=== PATIENT | female | born 1985 | race Caucasian/White ===

== ENCOUNTER 2024-05-22 21:15 | Emergency (ER) | payer SELFPAY ==
[2024-05-22] VITALS (17 sets, daily range): BP systolic 107–137; BP diastolic 83–96; PULSE 65–93; RESP 16–33; TEMP 37.2; O2SAT 95–99
[2024-05-22] MEDS: Ondansetron O.D.T. 4 MG TABEF PO (21:55)
--- NOTE | 2024-05-22 22:00 | RT.EKG_ITS ---
APPROVED REPORT Exam: Resting ECG Reason for Exam: seizure Patient Location: E HR:81 bpm ECG Measurements Heart Rate 81 AXIS LA 173 P 79 QRSd 80 QRS 56 QT 365 T 35 QTc 423 Conclusion Sinus rhythm...normal P axis, V-rate 60- [address] segment or T wave abnormalities to suggest occlusive SD
[2024-05-22] MEDS: LORazepam 2 MG/ML VIAL IVP (22:05)
[2024-05-22 22:15] LABS: BE (Venous) 5 mmol/L (-2-3); HCO3 (Venous) 27 mmol/L (23-28); O2 Sat (Venous) 93 %; TCO2 (Venous) 24 mmol/L (24-29); pCO2 (Venous) 32 mmHg (41-51); pH (Venous) 7.53 (7.31-7.41); pO2 (Venous) 57 mmHg
[2024-05-22 22:19] LABS: Abs Immature Grans 0.07 10^3/uL (0.0-0.06); Absolute Lymphocyte Count 1.99 10^3/uL (1.2-3.4); Absolute Monocyte Count 0.88 10^3/uL (0.1-0.8); Absolute Neutrophil Count 13.19 10^3/uL (1.2-6.7); Basophils % 0.4 %; Eosinophils % 0.1 %; HCT 35.6 % (36.0-46.0); HGB 11.9 g/dL (11.2-15.7); Immature Grans % 0.4 %; Lactate 2.1 mmol/L (0.6-1.4); Lymphocytes % 12.3 %; MCH 29.2 pg (27.0-33.0); MCHC 33.4 % (32.0-36.0); MCV 87 fL (80-95); MPV 10.8 fL (8.0-11.0); Monocytes % 5.4 %; Neutrophils % 81.4 %; Platelet Count 341 10^3/uL (130-400); RBC 4.08 10^6/uL (3.93-5.22); RDW-SD 44.6 fL; WBC 16.21 10^3/uL (4.4-10.8)
[2024-05-22 22:20] LABS: Absolute Basophil Count 0.06 10^3/uL (0.0-0.2); Absolute Eosinophil Count 0.02 10^3/uL (0.0-0.7)
[2024-05-22] MEDS: levETIRAcetam 2,000 MG in Normal Saline 100 ML 200 MG IVPB (22:27)
[2024-05-22 22:48] LABS: ALT 17 U/L (14-59); AST 22 U/L (15-37); Albumin 3.6 g/dL (3.4-5.0); Alkaline Phosphatase 97 U/L (46-116); Anion Gap 11.8 mmol/L (3-11); Bilirubin, Total 0.37 mg/dL (0.2-1.0); CO2 25.2 mmol/L (21.0-32.0); Chloride 103 mmol/L (98-107); Potassium 3.7 mmol/L (3.5-5.1); Sodium 140 mmol/L (136-145); Total Protein 8.2 g/dL (6.4-8.2)
[2024-05-22 22:51] LABS: Salicylate < 2.8 mg/dL (<2.8)
[2024-05-22 22:52] LABS: Acetaminophen < 2 ug/mL (10-30)
[2024-05-22 22:57] LABS: BUN 12 mg/dL (7-18); CREATININE 0.9 mg/dL (0.55-1.02); Calcium 9.9 mg/dL (8.5-10.1); ETHANOL BLOOD < 3.0 mg/dL (<10); Estimated GFR 82.88 (mL/min/1.73m2); Glucose 138 mg/dL (74-106); Magnesium 1.9 mg/dL (1.8-2.4)
--- NOTE | 2024-05-22 23:07 | NUR.NOTE ---
Nursing Note: Pt yelling out that her foot hurts she needs help. Checked IV in L foot not infiltrated. Removed Koban and pt settled down. Keppra is infused.
--- NOTE | 2024-05-22 23:50 | ED.GENADUL_ITS ---
Discharge Plan Disposition Patient Disposition: Home Condition: Good Discharge Details Clinical Impression: Opiate withdrawal, Vomiting, UTI (urinary tract infection), Seizure disorder ED Provider: Dorota Sanchez Home Meds and New Rx's Prescriptions: New levetiracetam 1,000 mg tablet 1,000 mg PO BID Qty: 60 0RF cephalexin 500 mg capsule 500 mg PO QID Qty: 40 0RF metoclopramide HCl [Reglan] 5 mg tablet 5 mg PO Q8H PRN PRNQty: 10 0RF Rx Instructions: administer 30 minutes before meals No Action levetiracetam [Keppra] 1,000 mg tablet 2,000 mg PO ONCE Discharge Instructions Instructions: Drug Misuse and Addiction (DC), Nausea and Vomiting, Adult ED, Seizures, Adult ED Additional Instructions: Make sure you take your levetiracetam (keppra) as prescribed. Do not miss any doses. Cephalexin 4 times a day for your urinary tract infection for the next 10 days until it is all gone. You can take reglan up to every 8 hours as needed for vomiting. Call your primary care doctor today to schedule an appointment for within the next 48 hours to followup on your visit here. Return to the emergency department for new or worsening symtpoms including fever, flank pain, inability to keep down fluids, recurrent seizures, thoughts of self harm, or if you change your mind about starting medication for opiate use disorder. HPI General Mode of arrival: ambulatory . Date/Time Provider Initiated Documentation: 05/22/24 21:52 . Limitations to Documentation: no limitations . Information obtained by: patient . HPI Narrative: 38yo F presenting for opiate withdrawal. States she uses percocet and kratom, last 3-4 days ago. Currently feels nauseated and shaky. History of opiate withdrawal which feels like this; has never been on MAT. Not sure if she wants to start now or continue using. No history of alcohol withdrawal. Does report history of seizures for which she is supposed to take keppra, no keppra in the last 5 days because she doesn't have any. Was vomiting in triage, no vomiting since then. Otherwise in her usual state of health with no fevers, chills, rash, abdominal pain, dysuria, hematuria, headache, numbness, tingling, weakness, recent head trauma, or other concerns. Related Data Home Medications ?Medication ?Instructions ?Recorded ?Confirmed levetiracetam 1,000 mg tablet 2,000 mg PO ONCE 05/22/24 05/22/24 (Keppra) cephalexin 500 mg capsule 500 mg PO QID #40 caps 05/23/24 levetiracetam 1,000 mg tablet 1,000 mg PO BID #60 tabs 05/23/24 metoclopramide HCl 5 mg tablet 5 mg PO Q8H PRN PRN #10 tabs 05/23/24 (Reglan) Previous Rx's ?Medication ?Instructions ?Recorded cephalexin 500 mg capsule 500 mg PO QID #40 caps 05/23/24 levetiracetam 1,000 mg tablet 1,000 mg PO BID #60 tabs 05/23/24 metoclopramide HCl 5 mg tablet 5 mg PO Q8H PRN PRN #10 tabs 05/23/24 (Reglan) Allergies Allergy/AdvReac Type Severity Reaction Status Date / Time prochlorperazine (From Allergy Anaphylaxis Verified 05/22/24 22:50 Compazine) terbutaline Allergy Anaphylaxis Verified 05/22/24 22:52 General Stated Complaint: ETOHWithdr YOSVAYN: 2 Exam Narrative Exam Narrative: General: Alert, well appearing, well nourished Head: Normocephalic, atraumatic Neck: Trachea midline, ?Neck supple. ENT: ?MMM.? No oropharygeal lesions or exudate. Cardiac: ?RRR, no murmurs appreciated Resp: No respiratory distress. CTAB. Abd: ?Soft, non-distended, nontender : ?No suprapubic tenderness. No CVA tenderness. Extremities: ?No deformities.? No peripheral edema. Neuro: ? GCS 15.? PERRL.? EOMI.? Fluent speech, no dysarthria. Motor- 5/5 strength symmetric bilateral upper and lower extremities Sensation- ?Intact to light touch and symmetric multiple dermatomes including upper and lower extremities Coordination- No dysmetria on finger to nose Reflexes- 2/4 achilles & patellar, no clonus Gait/station: ?Normal stance.? No truncal ataxia. Steady gait with equal normal steps CRANIAL NERVES: II: Pupils equal and reactive, III, IV, : EOM intact, no gaze preference or deviation, no nystagmus. V: normal sensation in V1, V2, and V3 segments bilaterally VII: no asymmetry, no nasolabial fold flattening VIII: normal hearing to speech IX, X: normal palatal elevation, no uvular deviation XI: 5/5 head turn and 5/5 shoulder shrug bilaterally XII: midline tongue protrusion Course Vital Signs Vital signs: Vital Signs Temperature 37.2 C 05/22/24 21:20 Pulse 89 05/22/24 21:20 Respiratory Rate 16 05/22/24 21:20 Blood Pressure 134/96 H 05/22/24 21:20 Pulse Oximetry 97 05/22/24 21:20 Temperature 37.2 C 05/22/24 21:20 Temperature Source Temporal Artery Scan 05/22/24 21:20 Pulse 79 05/22/24 23:01 Pulse 80 05/22/24 23:20 Respiratory Rate 22 05/22/24 23:20 Respiratory Effort Normal 05/22/24 21:25 Respiratory Pattern Normal 05/22/24 22:55 Blood Pressure 137/91 H 05/22/24 23:01 Blood Pressure Mean 100 05/22/24 23:01 Blood Pressure Position Sitting 05/22/24 21:20 Pulse Oximetry 97 05/22/24 23:20 Oxygen Delivery Method Room Air 05/22/24 21:20 Oxygen Flow Rate 0 05/22/24 21:20 Pain Level 8 05/22/24 21:20 Lab/Test Results Lab/Test Results: Laboratory Tests Range/Units 05/22/24 22:00 WBC (4.4-10.8) 10^3/uL 16.21 H RBC (3.93-5.22) 10^6/uL 4.08 Hgb (11.2-15.7) g/dL 11.9 Hct (36.0-46.0) % 35.6 L MCV (80-95) fL 87 MCH (27.0-33.0) pg 29.2 MCHC (32.0-36.0) % 33.4 RDW (11.7-14.6) % 14.0 Plt Count (130-400) 10^3/uL 341 MPV (8.0-11.0) fL 10.8 Immature Gran % % 0.4 Neutrophils % % 81.4 Lymphocytes % % 12.3 Monocytes % % 5.4 Eosinophils % % 0.1 Basophils % % 0.4 Nucleated RBC % (0.0-0.3) % 0.0 Absolute Neutrophils (1.2-6.7) 10^3/uL 13.19 H Absolute Lymphocytes (1.2-3.4) 10^3/uL 1.99 Absolute Monocytes (0.1-0.8) 10^3/uL 0.88 H Absolute Eosinophils (0.0-0.7) 10^3/uL 0.02 Absolute Basophils (0.0-0.2) 10^3/uL 0.06 VBG pH (7.31-7.41) 7.53 H VBG pCO2 (41-51) mmHg 32 L VBG pO2 mmHg 57 VBG HCO3 (23-28) mmol/L 27 VBG Total CO2 (24-29) mmol/L 24 VBG O2 Saturation % 93 VBG Base Excess (-2-3) mmol/L 5 H VBG Lactate (0.6-1.4) mmol/L 2.1 H Sodium (136-145) mmol/L 140 Potassium (3.5-5.1) mmol/L 3.7 Chloride (98-107) mmol/L 103 Carbon Dioxide (21.0-32.0) mmol/L 25.2 Anion Gap (3-11) mmol/L 11.8 H BUN (7-18) mg/dL 12 Creatinine (0.55-1.02) mg/dL 0.9 Est GFR (CKD-EPI 2020) (mL/min/1.73m2) 82.88 Glucose (74-106) mg/dL 138 H Calcium (8.5-10.1) mg/dL 9.9 Magnesium (1.8-2.4) mg/dL 1.9 Total Bilirubin (0.2-1.0) mg/dL 0.37 AST (15-37) U/L 22 ALT (14-59) U/L 17 Alkaline Phosphatase (46-116) U/L 97 Total Protein (6.4-8.2) g/dL 8.2 Albumin (3.4-5.0) g/dL 3.6 Salicylates (<2.8) mg/dL < 2.8 Acetaminophen (10-30) ug/mL < 2 Ethyl Alcohol (<10) mg/dL < 3.0 Medical Decision Making 38yo F with hx seizures on keppra nonadherent to her medications, presented for opiate withdrawal with nausea/vomiting and received zofran in triage. I was called to bedside at the start of my shift for patient reportedly actively seizing; nursing reported ~20 seconds of tonic-clonic activity which aborted without intervention. Upon my arrival to bedside whole body tonic-clonic activity resumed; during this patient would blink to threat. This lasted about 15 seconds and terminated without intervention- with minimal history available upon my evaluation and unknown ETOH history I did order 2mg IV ativan which was given just after seizure like activity had stopped. Immediately upon cessation of tonic-clonic activity patient was able to speak in full sentences and provided history, did not appear post ictal. Normal neurologic exam at that time. Given 2g IV keppra bolus. She reports to me use of percocet and kratom, last 3-4 days ago, and that she felt nauseated and shaky and like she was in opiate withdrawal for which she presented to the ED. Has never been on MAT and not sure if she wants to start. Otherwise well. Reassuring vital signs and physical exam. Epileptic generalized seizure unlikely based on lack of post-ictal period; given known seizure disorder and medication non-adherence will evaluate for provoking factors with labs. With benign physical and neurologic exam no indication for CT imaging of head or abdomen/pelvis. -EKG NSR with appropriate intervals, no ST segment or T wave abnormalities to suggest occlusive OR. -Labs drawn immediately after tonic-clonic activity, reviewed as below, CBC with leukocytosis to 16 (nonspecific) and no anemia, CMP with no actionable abnormalities, serum toxicology including ETOH negative, VBG with respiratory alkalosis consistent with hyperventilation and lactate mildly elevated at 2.1 not suggestive of generalized seizure or acute ischemia. -UA suggestive of UTI. SIRS negative, not septic, no flank pain or CVA tend erness to suggest pyelonephritits. Will treat with cephalexin; suspect most likely simple cystisits and N/V 2/t opiate withdrawal however out of abundance of caution will treat with 10 day course of 500mg QID to cover for pyelonephritits. Ideally would get repeat lactate given slightly elevated however patient lost IV access and multiple attempts at repeat IV/lab draw unsuccessful, pt refuses further attempts and with her normal vital signs and benign physical exam I feel this is not unreasonable. -Initial COWS was 23 before I arrived and was able to evaluate patient; at this time she reportedly endorsed vague SI without plan to nursing in the context of difficultly managing her symptoms. Did not appear to be in acute/severe opiate withdrawal on my evaluation, repeat COWS shortly thereafter was 1. Patient subsequently appeared to be sleeping comfortably, somewhat difficult to rouse for questions & assessment but will awaken with physical stimulation. Plan to observe in the ED overnight and reassess in the morning, at that time will discuss potential initiation of MAT and assess for need for mental health evaluation. On reassessment patient alert. Does have continued N/V despite zofran and reglan; will try IM droperidol. Continues with no abdominal tenderness to suggest obstruction/appendicitis/acute intraabdominal process. I discussed with Ms. Oakes options for treatment of opiate addiction and withdrawal; she states she is not interested in MAT at this time, she just wants her nausea controlled. I also discussed with her the statement she made to nursing regarding wanting to ; she initially told me that I don't actually want to , I just felt so horrible and denies any prior suicide attempts, history of depression, or prior psychiatric admissions. She states she does not want to speak with mental health. PO challenged and tolerated well. Initially unsteady on her feet but subsequently able to ambulate with contact guard. I discussed with her again options for opiate treatment; she again refuses, however now reports that she intends to leave the ED and likely overdose. States she is willing to speak with mental health. I suspect some of this is conditional/behavioral however given her statements I do feel she would benefit from evaluation by [facility]. I do not feel she meets involuntary criteria at this time should she change her mind. If cleared by mental health would anticipate home with prescription for levetiracetam, reglan, 10 day course of cephalexin. Signed out to oncoming physician, plan as above. Lab Data Lab results reviewed: Yes I reviewed the patient's lab results. Labs: 05/23/24 04:30 Urine - Reflex from Ua Urine Culture - Pending Laboratory Tests Range/Units 05/22/24 05/23/24 22:00 04:30 WBC (4.4-10.8) 10^3/uL 16.21 H RBC (3.93-5.22) 10^6/uL 4.08 Hgb (11.2-15.7) g/dL 11.9 Hct (36.0-46.0) % 35.6 L MCV (80-95) fL 87 MCH (27.0-33.0) pg 29.2 MCHC (32.0-36.0) % 33.4 RDW (11.7-14.6) % 14.0 Plt Count (130-400) 10^3/uL 341 MPV (8.0-11.0) fL 10.8 Immature Gran % % 0.4 Neutrophils % % 81.4 Lymphocytes % % 12.3 Monocytes % % 5.4 Eosinophils % % 0.1 Basophils % % 0.4 Nucleated RBC % (0.0-0.3) % 0.0 Absolute Neutrophils (1.2-6.7) 10^3/uL 13.19 H Absolute Lymphocytes (1.2-3.4) 10^3/uL 1.99 Absolute Monocytes (0.1-0.8) 10^3/uL 0.88 H Absolute Eosinophils (0.0-0.7) 10^3/uL 0.02 Absolute Basophils (0.0-0.2) 10^3/uL 0.06 VBG pH (7.31-7.41) 7.53 H VBG pCO2 (41-51) mmHg 32 L VBG pO2 mmHg 57 VBG HCO3 (23-28) mmol/L 27 VBG Total CO2 (24-29) mmol/L 24 VBG O2 Saturation % 93 VBG Base Excess (-2-3) mmol/L 5 H VBG Lactate (0.6-1.4) mmol/L 2.1 H Sodium (136-145) mmol/L 140 Potassium (3.5-5.1) mmol/L 3.7 Chloride (98-107) mmol/L 103 Carbon Dioxide (21.0-32.0) mmol/L 25.2 Anion Gap (3-11) mmol/L 11.8 H BUN (7-18) mg/dL 12 Creatinine (0.55-1.02) mg/dL 0.9 Est GFR (CKD-EPI 2020) (mL/min/1.73m2) 82.88 Glucose (74-106) mg/dL 138 H Calcium (8.5-10.1) mg/dL 9.9 Magnesium (1.8-2.4) mg/dL 1.9 Total Bilirubin (0.2-1.0) mg/dL 0.37 AST (15-37) U/L 22 ALT (14-59) U/L 17 Alkaline Phosphatase (46-116) U/L 97 Total Protein (6.4-8.2) g/dL 8.2 Albumin (3.4-5.0) g/dL 3.6 Urine Color (Yellow) Yellow Urine Clarity (Clear) Sl Cloudy Urine pH (5-8) 7.0 Ur Specific [place] (1.005-1.025) 1.020 Urine Protein (Neg-Trace) mg/dL 30 H Urine Ketones (Negative) mg/dL 40 H Urine Blood (Negative) Negative Urine Nitrite (Negative) Negative Urine Bilirubin (Negative) Negative Urine Urobilinogen (Up to 0.2) mg/dL 0.2 Ur Leukocyte Esterase (Negative) Large H Urine RBC (0-2) HPF Negative Urine WBC (0-5) HPF >50 H Ur Epithelial Cells (Negative) HPF Few Urine Crystals (Negative) HPF Negative Urine Bacteria (Negative) HPF Many Urine Casts (Negative) LPF 0-2 Hyaline Urine Mucus (Negative) Trace Ur Culture Indicated? Yes Urine Glucose (Negative) mg/dL Negative Salicylates (<2.8) mg/dL < 2.8 Acetaminophen (10-30) ug/mL < 2 Ethyl Alcohol (<10) mg/dL < 3.0 Quality:SDOH Health Related Social Needs: No Data to Display PFSH All Active Problems (Updated 05/23/24 @ 05:51 by Dorota Sanchez MD) Seizure disorder (Chronic) UTI (urinary tract infection) (Acute) Vomiting (Acute) Opiate withdrawal (Acute) Social History Smoking risk assessment performed?: No Drug use: Daily
[2024-05-23] VITALS (57 sets, daily range): BP systolic 101–135; BP diastolic 59–93; PULSE 66–92; RESP 16–30; TEMP 36.5; O2SAT 94–100
[2024-05-23 04:42] LABS: Bilirubin Negative (Negative); Blood Negative (Negative); Clarity Sl Cloudy (Clear); Glucose Negative (Negative); Ketones 40 mg/dL (Negative); Leukocyte Esterase Large (Negative); Nitrite Negative (Negative); Urobilinogen 0.2 mg/dL (Up to 0.2)
[2024-05-23] MEDS: Ondansetron 4 MG/2 ML VIAL IVP (04:42)
[2024-05-23] MEDS: Metoclopramide 10 MG TAB PO (04:45)
[2024-05-23 04:53] LABS: RBC Negative HPF (0-2); WBC >50 HPF (0-5)
[2024-05-23 04:54] LABS: Bacteria Many HPF (Negative); Crystals Negative HPF (Negative); Epithelial Cells Few HPF (Negative); Mucus Trace (Negative)
[2024-05-23 04:55] LABS: C & S Indicated? Yes; Casts 0-2 Hyaline LPF (Negative)
--- NOTE | 2024-05-23 05:16 | NUR.NOTE ---
Nursing Note: pt vomited all the juice she drank. aware.
[2024-05-23] MEDS: Droperidol 5 MG/2 ML VIAL 1.25 MG IM (05:34)
[2024-05-23] MEDS: Cephalexin 500 MG CAP PO (05:35)
--- NOTE | 2024-05-23 06:55 | NUR.NOTE ---
Nursing Note: Hand off report to RSOELIA Rosenbaum
--- NOTE | 2024-05-23 07:58 | W.EDPROG ---
Date of service: 05/23/24 Time of Service: 07:59 Medical Decision Making I received signout on this 38-year-old patient with a history of seizures. She is pending [facility] assessment in setting of suicidal ideation. She has been nauseous and vomiting. She was found to have a urinary tract infection. She had an episode of convulsions in the ED. Her medications have been refilled and sent to the pharmacy including antibiotics. Will reassess after network support administrator screening. 9:53 AM I spoke with Cassandra from [facility] who is in the emergency department to assess the patient. 2:22 PM I spoke again with Cassandra from [facility] who reported that the patient would be voluntary for inpatient hospitalization. Will order the patient's antibiotics for UTI and her twice daily levetiracetam. Will place her in zone B give her a regular diet on safety tray and place her on a one-to-one watch. Will update documentation clinically warranted and signed patient out to the oncoming evening provider. 4 PM No active behavioral issues last shift. Will sign patient out to Dr. Hill. Quality:[facility] Health Related Social Needs: No Data to Display Sign Out Sign Out Data: Sign Out Comment: 38yo F hx seizures not taking her home PEDRO clay with plan to OD, presented initially for opiate withdrawal primarily with vomiting. -Seizure-like activity in the ED with no post-ictal period. Ativan and keppra here. -Tolerating PO now after droperidol -UTI, getting keflex -Declines MAT -Pending NKHSS -If able to safety plan home, dc with keppra/reglan/cephalexin. Prescriptions sent. Last updated by Dorota Sanchez MD at 05/23/24 07:07 Discharge Plan Disposition Patient Disposition: Home Condition: Good Discharge Details Clinical Impression: Opiate withdrawal, Vomiting, UTI (urinary tract infection), Seizure disorder Primary Care Provider: None,None ED Provider: Rory Little Home Meds and New Rx's Prescriptions: New levetiracetam 1,000 mg tablet 1,000 mg PO BID Qty: 60 0RF cephalexin 500 mg capsule 500 mg PO QID Qty: 40 0RF metoclopramide HCl [Reglan] 5 mg tablet 5 mg PO Q8H PRN PRNQty: 10 0RF Rx Instructions: administer 30 minutes before meals No Action levetiracetam [Keppra] 1,000 mg tablet 2,000 mg PO ONCE Discharge Instructions Instructions: Drug Misuse and Addiction (DC), Nausea and Vomiting, Adult ED, Seizures, Adult ED Additional Instructions: Make sure you take your levetiracetam (keppra) as prescribed. Do not miss any doses. Cephalexin 4 times a day for your urinary tract infection for the next 10 days until it is all gone. You can take reglan up to every 8 hours as needed for vomiting. Call your primary care doctor today to schedule an appointment for within the next 48 hours to followup on your visit here. Return to the emergency department for new or worsening symtpoms including fever, flank pain, inability to keep down fluids, recurrent seizures, thoughts of self harm, or if you change your mind about starting medication for opiate use disorder.
--- NOTE | 2024-05-23 10:04 | NUR.NOTE ---
Nursing Note: This RN received report and transfer of care from Celia Echevarria RN at this time
--- NOTE | 2024-05-23 14:31 | CMSP_ITS ---
Date of service: 05/23/24 Time of Service: 14:31 Care Management Safety Plan Status Status: Voluntary Reason for Wait Reason for Wait: Inpatient Admission (Waiting for placement at an accepting inpatient psych facility. [facility] multifocal lens inspector met with patient, and well send referrals. ) Safety Plan Safety Plan: VOLUNTARY FOR INPATIENT PSYCHIATRIC STABILIZATION.? Patient is appropriate in all interactions since arriving at [facility]; Pt has demonstrated appropriate coping and communication skills and has articulated needs, concerns and is fully engaged during staff interactions. Safety plan has been established with patient, and care team, to adhere to patient goals, identify restrictions based on behavioral status, address nutrition, and determine allowed personal belongings, tools for hygiene and personal care. Determine level of activity including ambulation, level of supervision, visitors, and determine privileges based on behaviors and level of engagement by pt. CM reviewed Safety plan with [facility] guest services director, Primary RN and RN Desktop Specialist individually. Billie agrees to remain at [facility] voluntarily while seeking inpatient psych treatment at an accepting facility. Referrals are being sent by [facility]. SAFETY PLAN: 1. Will remain on suicide precautions, in paper clothes 2. Will remain in Zone B under direct supervision of one-on-one staff at all times provided by [employer]; DK, [employer]ICAL SUR[employer]ICAL [employer] bullet assembly press operator. 3. May have paper cups, plates, finger foods as well as a cardboard spoon with which to eat meals. 4. Follow [facility] Management of the Admitted Behavioral Health Patient policy. 5. Shower available in Zone B without restriction. 6. Personal belongings-soft items permitted at RN discretion. 7. Visitors, boyfriend Andrea at RN discretion. 8. Activities: soft cart items approved per RN discretion. 9.? Bathroom available in Zone B without restriction. 10. Phone: incoming/outgoing calls limited to [facility] cordless phone at RN discretion. Due to VOLUNTARY status, if patient wishes to leave [facility], staff will contact [facility] Crisis Screener ([phone]) and [employer] ([phone]) as soon as possible. In the event of elopement, notify [facility] Police ([phone]). Patient is currently voluntarily at [facility] and seeking inpatient admission when a bed becomes available. [facility] Frontline Brass Cutter will continue seeking placement. Please contact the [employer] ([phone]) and [facility] Brass Cutter ([phone]) for any needed changes in the Safety Plan. Safety plan has been provided to interdepartmental care team.
--- NOTE | 2024-05-23 14:31 | PDOC.CMSAFE ---
Date of service: 05/23/24 Time of Service: 14:31 Care Management Safety Plan Status Status: Voluntary Reason for Wait Reason for Wait: Inpatient Admission (Waiting for placement at an accepting inpatient psych facility. [facility] med surg nurse met with patient, and well send referrals. ) Safety Plan Safety Plan: VOLUNTARY FOR INPATIENT PSYCHIATRIC STABILIZATION.? Patient is appropriate in all interactions since arriving at [facility]; Pt has demonstrated appropriate coping and communication skills and has articulated needs, concerns and is fully engaged during staff interactions. Safety plan has been established with patient, and care team, to adhere to patient goals, identify restrictions based on behavioral status, address nutrition, and determine allowed personal belongings, tools for hygiene and personal care. Determine level of activity including ambulation, level of supervision, visitors, and determine privileges based on behaviors and level of engagement by pt. CM reviewed Safety plan with [facility] intrusion analyst, Primary RN and RN Risk Reduction Counselor individually. Billie agrees to remain at [facility] voluntarily while seeking inpatient psych treatment at an accepting facility. Referrals are being sent by [facility]. SAFETY PLAN: 1. Will remain on suicide precautions, in paper clothes 2. Will remain in Zone B under direct supervision of one-on-one staff at all times provided by [employer]; DK, MATCHBOOK ASSEMBLER dumb waiter operator. 3. May have paper cups, plates, finger foods as well as a cardboard spoon with which to eat meals. 4. Follow [facility] Management of the Admitted Behavioral Health Patient policy. 5. Shower available in Zone B without restriction. 6. Personal belongings-soft items permitted at RN discretion. 7. Visitors, boyfriend Andrea at RN discretion. 8. Activities: soft cart items approved per RN discretion. 9.? Bathroom available in Zone B without restriction. 10. Phone: incoming/outgoing calls limited to [facility] cordless phone at RN discretion. Due to VOLUNTARY status, if patient wishes to leave [facility], staff will contact [facility] Crisis Screener ([phone]) and Wide Area Network Engineer ([phone]) as soon as possible. In the event of elopement, notify [facility] Police ([phone]). Patient is currently voluntarily at [facility] and seeking inpatient admission when a bed becomes available. [facility] Frontline Real Estate Rental Agent will continue seeking placement. Please contact the Wide Area Network Engineer ([phone]) and [facility] Real Estate Rental Agent ([phone]) for any needed changes in the Safety Plan. Safety plan has been provided to interdepartmental care team.
--- NOTE | 2024-05-23 14:47 | NUR.NOTE ---
Nursing Note: This RN transferred report and care to Duy Marin RN at this time
[2024-05-23] MEDS: Cephalexin 500 MG CAP 250 MG PO (16:02)
--- NOTE | 2024-05-23 19:27 | NUR.NOTE ---
[facility] called and declined pt for intake.
[2024-05-23] MEDS: Ondansetron O.D.T. 4 MG TABEF PO (19:34)
[2024-05-23] MEDS: levETIRAcetam 500 MG TAB 1000 MG PO (19:35)
[2024-05-23] MEDS: cloNIDine 0.1 MG TAB 0.2 MG PO (20:18)
[2024-05-23] MEDS: LORazepam 1 MG TAB PO (21:00)
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
--- NOTE | 2024-05-24 00:41 | W.EDPROG ---
Date of service: 05/24/24 Time of Service: 00:00 Medical Decision Making This patient was signed out to me. Please see previous notes for H&P and initial eval. In brief, 38yo F here voluntary with SI, awaiting placement. Medically cleared, home meds ordered. Overnight no acute events. Will be signed out to oncoming physician, plan remains as above. Quality:[facility] Health Related Social Needs: No Data to Display Sign Out Sign Out Data: Sign Out Comment: 38yo F hx seizures not taking her home kepp, SI with plan to OD, presented initially for opiate withdrawal primarily with vomiting. -Seizure-like activity in the ED with no post-ictal period. Ativan and keppra here. -Tolerating PO now after droperidol -UTI, getting keflex -Declines MAT -Pending [facility] -If able to safety plan home, dc with keppra/reglan/cephalexin. Prescriptions sent. Last updated by Dorota Sanchez MD at 05/23/24 07:07 Sign Out Comment: 41-year-old female with suicidal ideation medically cleared voluntary pending placement. Home medications ordered. Cephalexin ordered for UTI. No active behavioral issues last shift. Last updated by Rory Little MD at 05/23/24 16:03 Sign Out Comment: 38-year-old female patient, suicidal ideation, voluntary. History of opioid use disorder with some withdrawal symptoms. On cephalexin for UTI, otherwise medically cleared. On my shift, became escalated with the other patient in zone B, as well as with security. Briefly in physical restraints, taken off by this provider and verbally this de-escalated. Took oral medications voluntarily to include clonidine for her withdrawal syndrome, as well as Ativan for anxiety and nausea. [facility] plan to reevaluate in the morning. Last updated by Shavon Hill MD at 05/23/24 23:14 Discharge Plan Disposition Patient Disposition: Home Condition: Good Discharge Details Clinical Impression: Opiate withdrawal, Vomiting, UTI (urinary tract infection), Seizure disorder Primary Care Provider: None,None ED Provider: Dorota Sanchez Home Meds and New Rx's Prescriptions: New levetiracetam 1,000 mg tablet 1,000 mg PO BID Qty: 60 0RF cephalexin 500 mg capsule 500 mg PO QID Qty: 40 0RF metoclopramide HCl [Reglan] 5 mg tablet 5 mg PO Q8H PRN PRNQty: 10 0RF Rx Instructions: administer 30 minutes before meals No Action levetiracetam [Keppra] 1,000 mg tablet 2,000 mg PO ONCE Discharge Instructions Instructions: Drug Misuse and Addiction (DC), Nausea and Vomiting, Adult ED, Seizures, Adult ED Additional Instructions: Make sure you take your levetiracetam (keppra) as prescribed. Do not miss any doses. Cephalexin 4 times a day for your urinary tract infection for the next 10 days until it is all gone. You can take reglan up to every 8 hours as needed for vomiting. Call your primary care doctor today to schedule an appointment for within the next 48 hours to followup on your visit here. Return to the emergency department for new or worsening symtpoms including fever, flank pain, inability to keep down fluids, recurrent seizures, thoughts of self harm, or if you change your mind about starting medication for opiate use disorder.
[2024-05-24] MEDS: LORazepam 1 MG TAB PO (01:50)
[2024-05-24] MEDS: hydrOXYzine HCL 25 MG TAB PO (04:59)
--- NOTE | 2024-05-24 05:51 | NUR.NOTE ---
This internal communications writer contacted the main ER at 23:20 to determine if the opiate scale should be continued or withdrawn. No new orders. Nursing Note:
--- NOTE | 2024-05-24 07:51 | ED.PROG_ITS ---
Date of service: 05/24/24 Time of Service: 07:51 Medical Decision Making I received signout on this 38-year-old female in the emergency department voluntarily in the setting of suicidal ideation. She is pending placement. She had a behavioral outburst last night for which she was transiently restrained. She did not require any involuntary medications but took medications voluntarily after her restraints were released. Will update documentation as clinically warranted and signed patient out to the oncoming evening provider. 11:30 AM I met with Cassandra from care management who assessed the patient again. She provided the patient with a safety plan. I met with the patient. She felt comfortable with this plan. She denies suicidal ideation and. She does not own handguns. We discussed that if she developed any suicidal thoughts or if she did not feel safe that she should return to the emergency department. Prescriptions have been sent to her pharmacy for her levetiracetam and cephalexin in setting of UTI. Patient understood her return indications and she was discharged with empiric trial of expectant outpatient management. Quality:[facility] Health Related Social Needs: No Data to Display Sign Out Sign Out Data: Sign Out Comment: 38yo F hx seizures not taking her home PEDRO clay with plan to OD, presented initially for opiate withdrawal primarily with vomiting. -Seizure-like activity in the ED with no post-ictal period. Ativan and keppra here. -Tolerating PO now after droperidol -UTI, getting keflex -Declines MAT - Pending [facility] -If able to safety plan home, dc with keppra/reglan/cephalexin. Prescriptions sent. Last updated by Dorota Sanchez MD at 05/23/24 07:07 Sign Out Comment: 41-year-old female with suicidal ideation medically cleared voluntary pending placement. Home medications ordered. Cephalexin ordered for UTI. No active behavioral issues last shift. Last updated by Rory Little MD at 05/23/24 16:03 Sign Out Comment: 38-year-old female patient, suicidal ideation, voluntary. History of opioid use disorder with some withdrawal symptoms. On cephalexin for UTI, otherwise medically cleared. On my shift, became escalated with the other patient in zone B, as well as with security. Briefly in physical restraints, taken off by this provider and verbally this de-escalated. Took oral medications voluntarily to include clonidine for her withdrawal syndrome, as well as Ativan for anxiety and nausea. [facility] plan to reevaluate in the morning. Last updated by Shavon Hill MD at 05/23/24 23:14 Sign Out Comment: 38-year-old female patient, suicidal ideation, voluntary. History of opioid use disorder with some withdrawal symptoms. On cephalexin for UTI. No behavioral issues overnight, [facility] to re-eval today. Last updated by Dorota Sanchez MD at 05/24/24 05:53 Discharge Plan Disposition Patient Disposition: Home Condition: Good Discharge Details Clinical Impression: Opiate withdrawal, Vomiting, UTI (urinary tract infection), Seizure disorder Primary Care Provider: None,None ED Provider: Rory Little [place] Meds and New Rx's Prescriptions: New levetiracetam 1,000 mg tablet 1,000 mg PO BID Qty: 60 0RF cephalexin 500 mg capsule 500 mg PO QID Qty: 40 0RF metoclopramide HCl [Reglan] 5 mg tablet 5 mg PO Q8H PRN PRNQty: 10 0RF Rx Instructions: administer 30 minutes before meals No Action levetiracetam [Keppra] 1,000 mg tablet 2,000 mg PO ONCE Discharge Instructions Instructions: Urinary tract infections in adults, Drug Misuse and Addiction (DC), Nausea and Vomiting, Adult ED, Seizures, Adult ED Additional Instructions: Make sure you take your levetiracetam (keppra) as prescribed. Do not miss any doses. Cephalexin 4 times a day for your urinary tract infection for the next 10 days until it is all gone. You can take reglan up to every 8 hours as needed for vomiting. Call your primary care doctor today to schedule an appointment for within the next 48 hours to followup on your visit here. Return to the emergency department for new or worsening symtpoms including fever, flank pain, inability to keep down fluids, recurrent seizures, thoughts of self harm, or if you change your mind about starting medication for opiate use disorder. You are given a safety plan by [facility] [employer] services. If you do not feel comfortable with this plan or if you feel as if you are a risk to yourself please return to the emergency department.
[2024-05-24 09:46] VITALS: BP 106/71; PULSE 77; RESP 20; TEMP 37.2; O2SAT 97
[2024-05-24] MEDS: Cephalexin 250 MG CAP PO (09:53)
[2024-05-24] MEDS: levETIRAcetam 500 MG TAB 1000 MG PO (09:53)
[2024-05-24 10:25] LABS: *AMPHETAMINES SCREEN URINE Negative (Negative); *BARBITURATES SCREEN URINE Negative (Negative); *BENZODIAZEPINES SCREEN URINE Negative (Negative); Cannabinoids THC Positive (Negative); Cocaine Screen,Urine Negative (Negative); METHADONE URINE SCREEN Negative (Negative); OPIATES URINE SCREEN Negative (Negative)
[2024-05-24 10:27] LABS: Tricyclic Antidepressants Negative (Negative)
[2024-05-25 11:38] LABS: Levetiracetam <1.0 mcg/mL
--- NOTE | 2024-05-25 14:49 | PDOC.CMPRO ---
Date of service: 05/25/24 Time of Service: 14:49 Care Management Progress Note Progress Note Text Progress Note Text: CM received a call from the ED stating that Billie was discharged from the ED yesterday and is not able to afford her medications that were prescribed to her, which were cephalexin, keppra, reglan (PRN), totaling $42.40 at [employer]. CM contacted the pharmacy, who was able to dispense the scheduled medications to provide her with enough medication to get her through Monday AM, approved by ED provider, Dr. Sherman. 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 CM spoke to Billie about [facility], and sent a referral to their office to help support her on Monday with resources to help her obtain her prescriptions, as well as obtaining health insurance. CM sent the referral, and suggested to Billie for her to call/stop in to [facility] on Monday. Billie was pleasant and appreciative of the support, and will follow up with [facility] on Monday. SDOH(Care Management) Screening Will the Patient Participate in the Screening?: Declined to provide
== END 2024-05-24 11:53 | disposition home or self-care (01) ==
PROVIDERS: Student in an Organized Health Care Education/Training Program; Emergency Provider Emergency Medicine
DX: R45.851 Suicidal ideations (principal); F11.93 Opioid use, unspecified with withdrawal; N39.0 Urinary tract infection, site not specified; T42.6X6A Underdosing of other antiepileptic and sedative-hypnotic drugs, initial encounter; Z91.138 Patient's unintentional underdosing of medication regimen for other reason; Z78.1 Physical restraint status
CPT/HCPCS: 00123; 36415; 80053; 80307; 81025; 82805; 87077; 93005; 96365; 96372; 96375; 99285; 80177; 80320; 80329; 81003; 81015; 83605; 83735; 85025; 87086; 87186; 93010; J1790; J1953; J2060; J2405